=== PATIENT | female | born 1995 | race Caucasian/White ===

== ENCOUNTER 2017-02-04 16:02 | Emergency (ER) | payer MEDICAID ==
[~2017-02-04 16:02] MED LIST: PRENATAL COMPLE1 TAB
[2017-02-04 17:02] LABS: BASOPHILS 0.3 % (0-2); EOSINOPHILS 0.5 % (0-7); HEMATOCRIT 35.6 % (36.0-48.0); HEMOGLOBIN 12.2 g/dL (12-16); IMMATURE GRANULOCYTES 0.1 % (0-5); LYMPHOCYTES 12.9 % (15-50); MCH 29.1 pg (26.0-34.0); MCHC 34.3 g/dL (31.0-37.0); MEAN PLATELET VOLUME 11.6 fL (7.4-10.4); MONOCYTES 10.6 % (2-11); NEUTROPHILS 75.6 % (40-80); RBC 4.19 10x6/uL (4.00-5.40); RDW 12.9 % (11.5-14.5)
[2017-02-04 17:05] LABS: PLATELET COUNT 150 10x3/uL (130-400)
[2017-02-04 17:42] LABS: ALBUMIN 3.6 g/dL (3.4-5.0); ALKALINE PHOSPHATASE 69 U/L (46-116); ALT (SGPT) 14 U/L (10-68); BILIRUBIN - TOTAL 0.46 mg/dL (0.2-1.3); CALC OSMOLALITY 272 mosm/kg (275-300); CARBON DIOXIDE 24.5 mmol/L (21.0-32.0); CHLORIDE - SERUM 101 mmol/L (98-107); CREATININE - SERUM 0.7 mg/dL (0.6-1.3); GLUCOSE 93 mg/dL (74-106); POTASSIUM - SERUM 3.5 mmol/L (3.5-5.1); PROTEIN - SERUM 7.8 g/dL (6.4-8.2); SODIUM 137 mmol/L (136-145); UREA NITROGEN 11 mg/dL (7-18); eGFR NON AFRICAN AMERICAN > 90 mL/min (90-120)
[2017-02-04 17:46] LABS: HCG SERUM POSITIVE (NEGATIVE)
[2017-02-04 20:46] LABS: APPEARANCE HAZY (CLEAR); COLOR YELLOW (YELLOW)
[2017-02-04 20:49] LABS: BILIRUBIN NEGATIVE (NEGATIVE); GLUCOSE NEGATIVE (NEGATIVE); KETONE MODERATE mg/dL (NEGATIVE); NITRITE NEGATIVE (NEGATIVE); PROTEIN NEGATIVE (NEGATIVE); UROBILINOGEN NORMAL (NORMAL)
[2017-02-04 20:50] LABS: BACTERIA MODERATE /hpf (NONE SEEN); MUCUS <1+ /lpf (NONE SEEN); RED CELLS - URINE 0-5 /hpf (0-5); WHITE CELLS - URINE 0-5 /hpf (0-5)
== END 2017-02-04 22:00 | disposition home or self-care (01) ==
LOC: D.ER 16:02
PROVIDERS: Emergency Medicine
DX: J02.9 Acute pharyngitis, unspecified (principal); O02.81 Inappropriate change in quantitative human chorionic gonadotropin (hCG) in early pregnancy; F17.200 Nicotine dependence, unspecified, uncomplicated

== ENCOUNTER 2017-07-27 13:41 | Emergency (ER) | payer SELFPAY | END 2017-07-27 13:51 | disposition left against medical advice (07) | LOC: D.ER 13:41 | DX: Z02.9 Encounter for administrative examinations, unspecified (principal) ==

== ENCOUNTER → 2017-07-27 14:10 | Outpatient (CLI) | payer SELFPAY | END | disposition home or self-care (01) | LOC: D.LDO 14:10 | DX: O26.899 Other specified pregnancy related conditions, unspecified trimester (principal); Z3A.00 Weeks of gestation of pregnancy not specified; R42 Dizziness and giddiness; R06.02 Shortness of breath; R53.83 Other fatigue ==

== ENCOUNTER → 2017-08-22 15:03 | Outpatient (CLI) | payer SELFPAY | END | disposition home or self-care (01) | LOC: D.LDO 15:03 | DX: O36.8130 Decreased fetal movements, third trimester, not applicable or unspecified (principal); Z3A.32 32 weeks gestation of pregnancy; R10.9 Unspecified abdominal pain ==

== ENCOUNTER → 2017-09-21 15:52 | Outpatient (CLI) | payer MEDICAID ==
[2017-09-21 16:13] LABS: APPEARANCE CLEAR (CLEAR); BILIRUBIN NEGATIVE (NEGATIVE); COLOR YELLOW (YELLOW); GLUCOSE NEGATIVE (NEGATIVE); KETONE NEGATIVE (NEGATIVE); NITRITE NEGATIVE (NEGATIVE); PROTEIN NEGATIVE (NEGATIVE); UROBILINOGEN NORMAL (NORMAL)
[2017-09-21 17:55] LABS: BASOPHILS 0.1 % (0-2); EOSINOPHILS 0.4 % (0-7); HEMATOCRIT 25.9 % (36.0-48.0); HEMOGLOBIN 8.2 g/dL (12-16); IMMATURE GRANULOCYTES 0.6 % (0-5); LYMPHOCYTES 16.6 % (15-50); MCH 24.8 pg (26.0-34.0); MCHC 31.7 g/dL (31.0-37.0); MCV 78.2 fL (80.0-100.0); MEAN PLATELET VOLUME 10.9 fL (7.4-10.4); MONOCYTES 8.2 % (2-11); NEUTROPHILS 74.1 % (40-80); RBC 3.31 10x6/uL (4.00-5.40); RDW 14.7 % (11.5-14.5); WBC 8.2 10x3/uL (4.8-10.8)
[2017-09-21 18:07] LABS: PLATELET COUNT 203 10x3/uL (130-400)
[2017-09-21 18:08] LABS: ALBUMIN 2.5 g/dL (3.4-5.0); ALKALINE PHOSPHATASE 106 U/L (46-116); ALT (SGPT) 10 U/L (10-68); BILIRUBIN - TOTAL 0.19 mg/dL (0.2-1.3); CALC OSMOLALITY 274 mosm/kg (275-300); CALCIUM 8.7 mg/dL (8.5-10.1); CARBON DIOXIDE 25.1 mmol/L (21.0-32.0); CHLORIDE - SERUM 105 mmol/L (98-107); CREATININE - SERUM 0.6 mg/dL (0.6-1.3); GLUCOSE 79 mg/dL (74-106); SODIUM 139 mmol/L (136-145); UREA NITROGEN 8 mg/dL (7-18); eGFR NON AFRICAN AMERICAN > 90 mL/min (90-120)
[2017-09-21 19:56] LABS: UDS - AMPHET NEGATIVE QUAL (NEGATIVE); UDS - BARB NEGATIVE QUAL (NEGATIVE); UDS - BENZO NEGATIVE QUAL (NEGATIVE); UDS - COCAINE NEGATIVE QUAL (NEGATIVE); UDS - OPIATE NEGATIVE QUAL (NEGATIVE); UDS - PCP NEGATIVE QUAL (NEGATIVE); UDS - THC NEGATIVE QUAL (NEGATIVE)
== END | disposition home or self-care (01) ==
LOC: D.LDO 15:52
PROVIDERS: Obstetrics & Gynecology
DX: O26.899 Other specified pregnancy related conditions, unspecified trimester (principal); Z3A.00 Weeks of gestation of pregnancy not specified; R20.2 Paresthesia of skin

== ENCOUNTER 2017-09-21 23:24 | Outpatient (CLI) | payer MEDICAID | END 2017-09-21 23:43 | disposition home or self-care (01) | LOC: D.LDO 23:24 → D.LD 23:25 → D.LDO 23:43 | DX: O26.899 Other specified pregnancy related conditions, unspecified trimester (principal); Z3A.00 Weeks of gestation of pregnancy not specified; R20.2 Paresthesia of skin ==

== ENCOUNTER → 2017-09-26 12:18 | Outpatient (CLI) | payer MEDICAID ==
[~2017-09-26 12:18] MED LIST changes: +HYDROCODON-ACE1 EAC7 PO; +IBUPROFEN600 MG PO; +iron
[2017-10-07 08:02] VITALS: BMI 26.2
== END | disposition home or self-care (01) ==
LOC: D.LDO 12:18
DX: O36.8130 Decreased fetal movements, third trimester, not applicable or unspecified (principal); Z3A.37 37 weeks gestation of pregnancy

== ENCOUNTER → 2017-10-03 18:01 | Outpatient (CLI) | payer MEDICAID ==
[2017-10-03 18:49] LABS: UDS - AMPHET NEGATIVE QUAL (NEGATIVE); UDS - BARB NEGATIVE QUAL (NEGATIVE); UDS - BENZO NEGATIVE QUAL (NEGATIVE); UDS - COCAINE NEGATIVE QUAL (NEGATIVE); UDS - OPIATE NEGATIVE QUAL (NEGATIVE); UDS - PCP NEGATIVE QUAL (NEGATIVE); UDS - THC NEGATIVE QUAL (NEGATIVE)
[2017-10-03 19:12] LABS: APPEARANCE CLOUDY (CLEAR); BILIRUBIN NEGATIVE (NEGATIVE); COLOR YELLOW (YELLOW); GLUCOSE 50 mg/dL (NEGATIVE); KETONE NEGATIVE (NEGATIVE); NITRITE NEGATIVE (NEGATIVE); PROTEIN NEGATIVE (NEGATIVE); UROBILINOGEN NORMAL (NORMAL)
[2017-10-07 08:02] VITALS: BMI 26.2
== END | disposition home or self-care (01) ==
LOC: D.LDO 18:01
PROVIDERS: Obstetrics & Gynecology
DX: O26.893 Other specified pregnancy related conditions, third trimester (principal); Z3A.38 38 weeks gestation of pregnancy

== ENCOUNTER 2017-10-07 07:18 | Inpatient (IN) | payer MEDICAID ==
[~2017-10-07] VITALS: Ht 172.7 cm; Wt 78.0 kg
--- NOTE | ~2017-10-07 | DS ---
PATIENT:PRASHANT PEMBERTON :89 MEDICAL RECORD: [id number] DISCHARGE SUMMARY ADMISSION DATE: 10/07/17 DISCHARGE DATE: 10/08/17 HOSPITAL COURSE: The patient was admitted on 10/07/2017. A 21-year-old G2, P1 at 38 weeks and 6 days, admitted in active labor. The patient was noted to be O positive, group B strep negative, and rubella immune. The patient was at 4 cm in active labor with category 1 tracing. PAST MEDICAL HISTORY: Significant for; 1. Anemia status post blood transfusion the prior week. 2. Positive THC. 3. Carpal tunnel syndrome. PAST SURGICAL HISTORY: The patient reported no surgical history. ALLERGIES: SULFA AND CODEINE. MEDICATIONS: Included vitamins. FAMILY HISTORY: The patient reported a family history noncontributory. SOCIAL HISTORY: Significant for a someday tobacco and marijuana smoker. PHYSICAL EXAMINATION: GENERAL: On initial assessment, the patient was noted to be anxious and in obvious pain from labor. LUNGS: Clear to auscultation. CARDIOVASCULAR: Regular rate and rhythm. PELVIC: Uterus was appropriately sized and nontender. EXTREMITIES: Lower extremities were free of Homans sign. wellbeing was reassuring with a category 1 tracing. Plan at that time, admit for expectant management of labor with AROM when appropriate, category 1 tracing. Admit hemoglobin was found to be 10.4, platelet count of 181. Delivery note is as on the chart. AROM was performed at 9 cm with clear fluid and continued category 1 tracing. The patient then quickly progressed to the second stage when an SCD was performed. As mentioned, delivery note is as on the chart. The patient did well overnight on day #0, tolerating general diet, p.o. pain meds, voiding freely and ambulating well. On the morning of day #1, the patient continued to do well. Vital signs are stable. The patient was afebrile. Hemoglobin was stable. Uterus was infraumbilical and nontender, minimal lochia was noted at that time. The patient was discharged home on day #1 with instructions to follow up in 4 weeks. TRANSINT:[id number] Voice Confirmation ID: [id number] DOCUMENT ID: [id number] DISCHARGE SUMMARY REPORT [id number] PRASHANT PEMBERTON, LASHELL Jimenez MD at 1304 CC: [id number] DICTATION DATE: 11/22/17 0704 SENIOR COGNOS DEVELOPER: 11/22/17 0924 DIS IN 10/08/17 [place] [id number] [place] [address]
[~2017-10-07 07:18] MED LIST changes: -HYDROCODON-ACE1 EAC7 PO; -IBUPROFEN600 MG PO; -iron
[2017-10-07] MEDS ORDERED: iron (08:00)
[2017-10-07 08:02] VITALS: BP 125/67; Ht 172.7 cm; Wt 78.0 kg
[2017-10-07 08:49] LABS: HEMATOCRIT 31.6 % (36.0-48.0); HEMOGLOBIN 10.4 g/dL (12-16); MCH 25.8 pg (26.0-34.0); MCHC 32.9 g/dL (31.0-37.0); MCV 78.4 fL (80.0-100.0); MEAN PLATELET VOLUME 11.8 fL (7.4-10.4); RBC 4.03 10x6/uL (4.00-5.40); WBC 13.9 10x3/uL (4.8-10.8)
[2017-10-07 08:53] LABS: APPEARANCE HAZY (CLEAR); BILIRUBIN NEGATIVE (NEGATIVE); COLOR YELLOW (YELLOW); GLUCOSE NEGATIVE (NEGATIVE); KETONE NEGATIVE (NEGATIVE); NITRITE NEGATIVE (NEGATIVE); PROTEIN NEGATIVE (NEGATIVE); SPECIFIC GRAVITY 1.015 (1.005-1.020); UROBILINOGEN NORMAL (NORMAL)
[2017-10-07 08:56] LABS: BACTERIA MODERATE /hpf (NONE SEEN); MUCUS >1+ /lpf (NONE SEEN); RED CELLS - URINE 0-5 /hpf (0-5); SPERMATOZOA PRESENT /hpf (NONE SEEN); WHITE CELLS - URINE 25-50 /hpf (0-5)
[2017-10-07 08:57] LABS: CALCIUM OXALATE CRYSTALS 0-5 /hpf (NONE SEEN)
[2017-10-07 16:30] VITALS: BP 118/54
[2017-10-07 21:37] VITALS: BP 109/59
[2017-10-08 06:41] LABS: BASOPHILS 0.2 % (0-2); EOSINOPHILS 0.7 % (0-7); HEMATOCRIT 34.2 % (36.0-48.0); HEMOGLOBIN 10.8 g/dL (12-16); IMMATURE GRANULOCYTES 0.4 % (0-5); LYMPHOCYTES 23.2 % (15-50); MCH 25.4 pg (26.0-34.0); MCHC 31.6 g/dL (31.0-37.0); MONOCYTES 7.4 % (2-11); NEUTROPHILS 68.1 % (40-80); PLATELET COUNT 185 10x3/uL (130-400); RBC 4.25 10x6/uL (4.00-5.40); RDW 17.4 % (11.5-14.5); WBC 11.8 10x3/uL (4.8-10.8)
[2017-10-08 06:47] LABS: MCV 80.5 fL (80.0-100.0)
[2017-10-08 07:30] LABS: RAPID PLASMA REAGIN Non Reactive (Non Reactive)
[2017-10-08 10:16] VITALS: BP 106/57
[2017-10-08] MEDS ORDERED: IBUPROFEN600 MG PO (13:59)
[2017-10-08] MEDS ORDERED: HYDROCODON-ACE1 EAC7 PO (14:00)
== END 2017-10-08 16:25 | disposition home or self-care (01) | DRG 775 ==
LOC: D.LDO 07:18 → D.LD 08:42
PROVIDERS: Obstetrics & Gynecology
PROC: 10E0XZZ Delivery of Products of Conception, External Approach (ICD-10-PCS; principal; 2017-10-07)
PROC: 10907ZC Drainage of Amniotic Fluid, Therapeutic from Products of Conception, Via Natural or Artificial Opening (ICD-10-PCS; 2017-10-07)
DX: O99.334 Smoking (tobacco) complicating childbirth (principal); Z3A.38 38 weeks gestation of pregnancy; Z37.0 Single live birth; O99.324 Drug use complicating childbirth; F15.90 Other stimulant use, unspecified, uncomplicated; O99.02 Anemia complicating childbirth

== ENCOUNTER 2018-12-13 17:34 | Emergency (ER) | payer OTHER ==
[~2018-12-13] VITALS: Ht 172.7 cm; Wt 61.4 kg
[~2018-12-13 17:34] MED LIST changes: +HYDROCODON-ACE1 EAC7 PO; +IBUPROFEN600 MG PO; +iron
[2018-12-13 17:48] VITALS: Ht 172.7 cm; Wt 61.4 kg
[2018-12-13 18:05] LABS: APPEARANCE CLEAR (CLEAR); BILIRUBIN NEGATIVE (NEGATIVE); COLOR YELLOW (YELLOW); GLUCOSE NEGATIVE (NEGATIVE); KETONE NEGATIVE (NEGATIVE); NITRITE NEGATIVE (NEGATIVE); PROTEIN TRACE mg/dL (NEGATIVE); UROBILINOGEN NORMAL (NORMAL)
[2018-12-13 18:06] LABS: RED CELLS - URINE 0-5 /hpf (0-5); WHITE CELLS - URINE 0-5 /hpf (0-5)
[2018-12-13 18:07] LABS: BACTERIA FEW /hpf (NONE SEEN); MUCUS >1+ /lpf (NONE SEEN)
[2018-12-13 18:08] LABS: HCG URINE NEGATIVE (NEGATIVE)
[2018-12-13 18:36] LABS: BASOPHILS 0.1 % (0-2); EOSINOPHILS 0.1 % (0-7); HEMATOCRIT 36.8 % (36.0-48.0); HEMOGLOBIN 13.1 g/dL (12-16); IMMATURE GRANULOCYTES 0.2 % (0-5); LYMPHOCYTES 5.3 % (15-50); MCH 29.4 pg (26.0-34.0); MCHC 35.6 g/dL (31.0-37.0); MCV 82.7 fL (80.0-100.0); MEAN PLATELET VOLUME 10.7 fL (7.4-10.4); MONOCYTES 4.6 % (2-11); NEUTROPHILS 89.7 % (40-80); PLATELET COUNT 188 10x3/uL (130-400); RBC 4.45 10x6/uL (4.00-5.40); RDW 12.8 % (11.5-14.5); WBC 13.1 10x3/uL (4.8-10.8)
[2018-12-13 18:52] LABS: ALBUMIN 3.9 g/dL (3.4-5.0); ALKALINE PHOSPHATASE 71 U/L (46-116); ALT (SGPT) 19 U/L (10-68); AMYLASE - SERUM 70 U/L (25-115); BILIRUBIN - TOTAL 0.67 mg/dL (0.2-1.3); CALC OSMOLALITY 283 mosm/kg (275-300); CALCIUM 8.5 mg/dL (8.5-10.1); CARBON DIOXIDE 26.9 mmol/L (21.0-32.0); CHLORIDE - SERUM 105 mmol/L (98-107); CREATININE - SERUM 0.8 mg/dL (0.6-1.3); GLUCOSE 89 mg/dL (74-106); LIPASE 95 U/L (73-393); POTASSIUM - SERUM 3.7 mmol/L (3.5-5.1); PROTEIN - SERUM 7.1 g/dL (6.4-8.2); SODIUM 142 mmol/L (136-145); UREA NITROGEN 18 mg/dL (7-18); eGFR NON AFRICAN AMERICAN > 90 mL/min (90-120)
[2018-12-13] MEDS ORDERED: PHENERGAN25 M1 PO (20:19)
[2018-12-13] MEDS ORDERED: LOMOTIL 2.5-0.1 EAC1 PO (20:19)
[2018-12-13 20:46] VITALS: BP 130/61
== END 2018-12-13 20:46 | disposition home or self-care (01) ==
LOC: D.ER 17:34
PROVIDERS: Family Medicine
DX: A08.4 Viral intestinal infection, unspecified (principal)

== ENCOUNTER 2019-10-01 17:08 | Outpatient (CLI) | payer OTHER ==
[2018-12-13 17:48] VITALS: BMI 20.5
[~2019-10-01 17:08] MED LIST changes: +LOMOTIL 2.5-0.1 EAC1 PO; +PHENERGAN25 M1 PO
[2019-10-01 17:53] LABS: BASOPHILS 0.1 % (0-2); EOSINOPHILS 0.3 % (0-7); HEMATOCRIT 30.9 % (36.0-48.0); HEMOGLOBIN 10.2 g/dL (12-16); IMMATURE GRANULOCYTES 0.3 % (0-5); LYMPHOCYTES 14.1 % (15-50); MCH 29.3 pg (26.0-34.0); MCV 88.8 fL (80.0-100.0); MEAN PLATELET VOLUME 10.9 fL (7.4-10.4); MONOCYTES 6.1 % (2-11); NEUTROPHILS 79.1 % (40-80); PLATELET COUNT 201 10x3/uL (130-400); RBC 3.48 10x6/uL (4.00-5.40); RDW 13.1 % (11.5-14.5); WBC 11.4 10x3/uL (4.8-10.8)
[2019-10-01 18:24] LABS: ALBUMIN 2.9 g/dL (3.4-5.0); ALKALINE PHOSPHATASE 67 U/L (30-120); ALT (SGPT) 11 U/L (10-68); BILIRUBIN - TOTAL 0.19 mg/dL (0.2-1.3); CALC OSMOLALITY 272 mosm/kg (275-300); CALCIUM 8.4 mg/dL (8.5-10.1); CARBON DIOXIDE 23.7 mmol/L (21.0-32.0); CHLORIDE - SERUM 103 mmol/L (98-107); CREATININE - SERUM 0.7 mg/dL (0.6-1.3); GLUCOSE 83 mg/dL (74-106); POTASSIUM - SERUM 3.8 mmol/L (3.5-5.1); PROTEIN - SERUM 6.2 g/dL (6.4-8.2); SODIUM 137 mmol/L (136-145); UREA NITROGEN 12 mg/dL (7-18); eGFR NON AFRICAN AMERICAN > 90 mL/min (90-120)
== END 2019-10-01 18:30 | disposition home or self-care (01) ==
LOC: D.LDO 17:08
PROVIDERS: ATTEND Obstetrics & Gynecology
DX: O26.899 Other specified pregnancy related conditions, unspecified trimester (principal); Z3A.00 Weeks of gestation of pregnancy not specified; R00.0 Tachycardia, unspecified; R00.2 Palpitations

== ENCOUNTER → 2019-11-15 10:27 | Outpatient (CLI) | payer OTHER ==
[2018-12-13 17:48] VITALS: BMI 20.5
--- NOTE | ~2019-11-15 | EC ---
PATIENT:PRASHANT PEMBERTON DATE OF SERVICE: 11/15/19 SEX: F MEDICAL RECORD: [id number] DATE OF : [birth year] [facility] AGE OF PATIENT: 23 ADMISSION DATE: 11/15/19 REFERRING PHYSICIAN: INTERPRETING PHYSICIAN: NELL CASTELAN MD ECHOCARDIOGRAM REPORT ECHO CHARGES 4 ECHO COMPLETE Date: 11/15/19 CLINICAL DIAGNOSIS: HEART MURMUR ECHOCARDIOGRAPHIC MEASUREMENTS (adult normal given) AC root (d.<3.7cm) 3.2 cm LV Septum d (<1.2 cm> 1.2 cm Valve Excursion 1.7 cm LV Septum (systole) 1.5 cm Left Atria (s.<4.0cm> 3.9 cm LVPW d(<1.2cm) 1.3 cm RV (d.<2.3cm) 3.8 cm LVPW (sytole) 1.8 cm LV diastole(<5.6CM) 4.7 cm MV E-F(>70mm/sec) cm LV systole 2.9 cm LVOT Diameter 2.4 cm MV exc.(>10mm) 1.7 cm Est.ejection fraction (50-75%) % DOPPLER: LVIT cm/sec A 58.0 cm/sec E 74.0 cm/sec LA cm/sec RVSP 31 mmHg LVOT 109 cm/sec AOP1/2T m/s Asc. Ao 158 cm/sec RVOT 130 cm/sec RA cm/sec PA 146 cm/sec AV Gradient Peak 9.93 mmHg AV Mean 4.40 mmHg AV Area 3.9 cm MV Gradient Peak 3.34 mmHg MV Mean 1.84 mmHg MV Area cm COMMENTS: Video Software Engineer: 2 RORY RODRIGUEZ Custodial Services Manager: 3 Dr. Batres TAPE# PACS Pericardial Effusion N DATE OF SERVICE: Adequate 2D, color flow imaging, spectral Doppler, and M-Mode. No LVH. LV internal dimensions are normal. Wall motion is normal. EF is greater than or equal to 55%. Aortic valve is tricuspid. No evidence of stenosis by Doppler interrogation. Left atrium is normal. Mitral valve shows no prolapse. Physiologic MR. Right-sided chambers are grossly normal. Physiologic TR. ECHOCARDIOGRAM REPORT [id number] PRASHANT PEMBERTON TRANSINT:[id number] Voice Confirmation ID: [id number] DOCUMENT ID: [id number] NELL CASTELAN MD CC: [id number] DICTATION DATE: 11/16/19 1241 REHABILITATION THERAPIST: 11/16/19 1324 DEP CLI 11/15/19 [place] [id number] [place] [id number]
== END | disposition home or self-care (01) ==
LOC: D.HCCECHO 10:27
PROVIDERS: ATTEND Internal Medicine Interventional Cardiology
DX: R01.1 Cardiac murmur, unspecified (principal)

== ENCOUNTER → 2019-12-16 22:03 | Outpatient (CLI) | payer OTHER ==
[2018-12-13 17:48] VITALS: BMI 20.5
[2019-12-16 22:23] LABS: BILIRUBIN NEGATIVE (NEGATIVE); GLUCOSE 100 mg/dL (NEGATIVE); KETONE NEGATIVE (NEGATIVE); NITRITE NEGATIVE (NEGATIVE); UROBILINOGEN NORMAL (NORMAL)
[2019-12-16 22:42] LABS: UDS - AMPHET NEGATIVE QUAL (NEGATIVE); UDS - BARB NEGATIVE QUAL (NEGATIVE); UDS - BENZO NEGATIVE QUAL (NEGATIVE); UDS - COCAINE NEGATIVE QUAL (NEGATIVE); UDS - OPIATE NEGATIVE QUAL (NEGATIVE); UDS - PCP NEGATIVE QUAL (NEGATIVE); UDS - THC NEGATIVE QUAL (NEGATIVE)
== END | disposition home or self-care (01) ==
LOC: D.LDO 22:03
PROVIDERS: ATTEND Obstetrics & Gynecology
DX: O26.893 Other specified pregnancy related conditions, third trimester (principal); Z3A.34 34 weeks gestation of pregnancy; R03.0 Elevated blood-pressure reading, without diagnosis of hypertension

== ENCOUNTER 2020-01-04 15:02 | Outpatient (CLI) | payer OTHER ==
[2018-12-13 17:48] VITALS: BMI 20.5
[2020-01-04] MEDS ORDERED: AMBIEN5 MG PO (15:19)
[2020-01-04] MEDS ORDERED: CYCLOBENZAPRINE10 MG PO (15:21)
--- NOTE | 2020-01-04 15:59 | NUR ---
DR. MUÑOZ NOTIFIED AND REVIEWED PT'S BEHAVIOR AND ASSESSMENT RESULTS. PT IS A LOW RISK PER DR. MUÑOZ. DR. MUÑOZ STATED TO GIVE RESOURCES TO PT AT TIME OF DISCHARGE. NO FURTHER ORDERS AT THIS TIME. RESOURCES REVIEWED WITH PT AND SHE VERBALIZED UNDERSTANDING.
== END 2020-01-04 16:45 | disposition home or self-care (01) ==
LOC: D.LDO 15:02
PROVIDERS: ATTEND Obstetrics & Gynecology
DX: O36.8190 Decreased fetal movements, unspecified trimester, not applicable or unspecified (principal)

== ENCOUNTER 2020-01-06 12:41 | Outpatient (CLI) | payer OTHER ==
[2018-12-13 17:48] VITALS: BMI 20.5
[~2020-01-06 12:41] MED LIST changes: +AMBIEN5 MG PO; +CYCLOBENZAPRINE10 MG PO
[2020-01-06 13:14] LABS: BILIRUBIN NEGATIVE (NEGATIVE); KETONE NEGATIVE (NEGATIVE); NITRITE NEGATIVE (NEGATIVE); UROBILINOGEN NORMAL (NORMAL)
[2020-01-06 13:15] LABS: BACTERIA FEW /HPF (NONE SEEN); EPITHELIAL CELLS 0-5 /hpf (0-5); WHITE CELLS - URINE OCC /hpf (0-5)
[2020-01-06 13:18] LABS: UDS - AMPHET NEGATIVE QUAL (NEGATIVE); UDS - BARB NEGATIVE QUAL (NEGATIVE); UDS - BENZO NEGATIVE QUAL (NEGATIVE); UDS - COCAINE NEGATIVE QUAL (NEGATIVE); UDS - OPIATE NEGATIVE QUAL (NEGATIVE); UDS - PCP NEGATIVE QUAL (NEGATIVE); UDS - THC NEGATIVE QUAL (NEGATIVE)
== END 2020-01-06 14:45 | disposition home or self-care (01) ==
LOC: D.LDO 12:41
PROVIDERS: ATTEND Student in an Organized Health Care Education/Training Program
DX: O47.9 False labor, unspecified (principal)

== ENCOUNTER 2020-01-14 22:50 | Outpatient (CLI) | payer OTHER ==
[2018-12-13 17:48] VITALS: BMI 20.5
[2020-01-14 23:12] LABS: BILIRUBIN NEGATIVE (NEGATIVE); KETONE SMALL mg/dL (NEGATIVE); NITRITE NEGATIVE (NEGATIVE); UROBILINOGEN NORMAL mg/dL (< 2)
== END 2020-01-15 00:05 ==
LOC: D.LDO 22:50
PROVIDERS: ATTEND Obstetrics & Gynecology
DX: O35.9XX0 Maternal care for (suspected) fetal abnormality and damage, unspecified, not applicable or unspecified (principal)

== ENCOUNTER 2020-01-17 11:30 | Inpatient (IN) | payer OTHER ==
[~2020-01-17] VITALS: Ht 172.7 cm; Wt 77.3 kg
[2020-01-17 13:00] LABS: HEMATOCRIT 29.1 % (36.0-48.0); HEMOGLOBIN 8.7 g/dL (12-16); MCHC 29.9 g/dL (31.0-37.0); MCV 73.7 fL (80.0-100.0); MEAN PLATELET VOLUME 11.2 fL (7.4-10.4); RBC 3.95 10x6/uL (4.00-5.40); WBC 14.4 10x3/uL (4.8-10.8)
[2020-01-17 13:16] LABS: UDS - AMPHET NEGATIVE QUAL (NEGATIVE); UDS - BARB NEGATIVE QUAL (NEGATIVE); UDS - BENZO NEGATIVE QUAL (NEGATIVE); UDS - COCAINE NEGATIVE QUAL (NEGATIVE); UDS - OPIATE NEGATIVE QUAL (NEGATIVE); UDS - PCP NEGATIVE QUAL (NEGATIVE); UDS - THC NEGATIVE QUAL (NEGATIVE)
--- NOTE | 2020-01-17 17:50 | NUR ---
pt ring call light- co of iv saline lock hurting and requesting that it be removed. no redness or swelling noted around site. iv discontinued -cath tip intact- pressure held and bandaide applied. denies other needs. p and about in room.
[2020-01-17 19:56] VITALS: BP 108/55; Ht 172.7 cm; Wt 77.3 kg
--- NOTE | 2020-01-17 19:56 | NUR ---
PT REC'D IN BED AT THIS TIME. COMPLAINS OF PAIN 07/05. FUNDUS FIRM AND MIDLINE. SCANT LOCHIA NOTED. U/2. NO DISTRESS NOTED. Claudia SOSA RN
--- NOTE | 2020-01-17 20:12 | NUR ---
PT MEDICATED WITH MOTRIN. WILL MONITOR. Claudia SOSA RN
--- NOTE | 2020-01-17 21:10 | NUR ---
PT STATES THAT SHE HAD NO PAIN AT THIS TIME. WILL CONTINUE TO MONITOR. Claudia SOSA RN
--- NOTE | 2020-01-17 22:40 | NUR ---
PT REC'D IN BED AT THIS TIME. NO NEEDS VOICED. Claudia SOSA RN
--- NOTE | 2020-01-18 00:10 | NUR ---
PT WITH INFANT. DENIES PAIN.. REQUESTING ICE. NO DISTRESS NOTED. Claudia SOSA RN
--- NOTE | 2020-01-18 02:20 | NUR ---
PT REC'D UP TIN ROOM NO DISTRESS NOTED. LINEN CHANGED AT THIS TIME. Claudia SOSA RN
--- NOTE | 2020-01-18 04:40 | NUR ---
PT REC'D IN BED TAKING CARE OF AT THIS TIME. PT DENIES NEEDS OR PAIN AT THIS TIME. NO DISTRESS NOTED. Claudia SOSA RN
[2020-01-18 06:12] LABS: BASOPHILS 0.2 % (0-2); EOSINOPHILS 1.1 % (0-7); HEMATOCRIT 27.7 % (36.0-48.0); HEMOGLOBIN 8.1 g/dL (12-16); IMMATURE GRANULOCYTES 0.7 % (0-5); LYMPHOCYTES 27.3 % (15-50); MCH 21.7 pg (26.0-34.0); MCHC 29.2 g/dL (31.0-37.0); MCV 74.3 fL (80.0-100.0); MEAN PLATELET VOLUME 10.3 fL (7.4-10.4); MONOCYTES 6.7 % (2-11); PLATELET COUNT 290 10x3/uL (130-400); RBC 3.73 10x6/uL (4.00-5.40); RDW 15.9 % (11.5-14.5); WBC 11.9 10x3/uL (4.8-10.8)
--- NOTE | 2020-01-18 06:30 | NUR ---
PT MEDICATED WITH NORCO 1 TAB FOR PAIN OF 4/10. WILL MONITOR. Claudia SOSA RN
[2020-01-18 07:15] LABS: RAPID PLASMA REAGIN Non Reactive (Non Reactive)
[2020-01-18 08:25] VITALS: BP 108/54
--- NOTE | 2020-01-18 08:25 | NUR ---
THIS RN AT BEDSIDE DURING SHIFT ASSESSMENT AND CONCURS WITH SHIFT ASSESSMENT CHARTED BY Kishore MCCORD RN.
--- NOTE | 2020-01-18 08:25 | NUR ---
SHIFT ASSESSMENT COMPLETED PER FLOWSHEET. VSS. FUNDUS FIRM MIDLINE U1. SMALL AMOUNT RUBRA LOCHIA NOTED. NO CLOTS. PATIENT REPORTS "EARLIER THIS MORNING HAD ONE CLOT." DENIES PAIN AT THIS TIME, HOWEVER REPORTS INTERMITTENT CRAMPING. POC DISCUSSED WITH PATIENT AND SIGNIFICANT OTHER. BOTH VERBALIZE UNDERSTANDING AND DENIE QUESTIONS. SIGNIFICANT OTHER SUPPORTIVE TO PATIENT AND 'S NEEDS. BED IN LOW POSITION. CALL LIGHT AND PHONE WITHIN REACH. SRUP X2. RESTING IN OPEN CRIB.
--- NOTE | 2020-01-18 09:42 | NUR ---
C/O INTERMITTENT ABDOMEN CRAMPING 08/05. MOTRIN GIVEN PER ORDER AND PATIENT REQUEST. VIT C AND IRON PROVIDED PER ORDER. EDUCATED ON MEDS. VERBALIZES UNDERSTANDING. BONDING WITH INFANT IN ARMS. DENIES NEEDS. BED IN LOW POSITION. SRUP X2.
--- NOTE | 2020-01-18 10:24 | NUR ---
PAIN REASSESSMENT COMPLETED. RESTING QUIETLY WITH EYES CLOSED. RESPIRATIONS REGULAR AND UNLABORED, NO S/S OF DISTRESS NOTED. INFANT RESTING QUIETLY IN OPEN CRIB AT BEDSIDE. SIGNIFICANT OTHER WATCHING TV, DENIES QUESTIONS AND NEEDS. BED IN LOW POSITION WITH SRUP X2. CALL LIGHT AND PHONE WITHIN REACH. WILL CONTINUE TO MONITOR.
--- NOTE | 2020-01-18 11:54 | NUR ---
ROUNDS MADE. SITTING UP PREPARING TO EAT LUNCH TRAY. DENIES PAIN AND NEEDS AT THIS TIME. IN FOB'S ARMS. WILL CONTINUE TO MONITOR.
--- NOTE | 2020-01-18 14:27 | NUR ---
C/O CRAMPING 09/04. NORCO PROVIDED PER PATIENT REQUEST AND ORDER. BONDING WITH INFANT. SIGNIFICANT OTHER SUPPORTIVE AND ATTENTIVE. DENIES ADDITIONAL NEEDS.
[2020-01-18] MEDS ORDERED: MOTRIN600 MG PEG (15:52)
[2020-01-18] MEDS ORDERED: EZFE 200200 MG PO (15:53)
--- NOTE | 2020-01-18 17:11 | NUR ---
PATIENT EDUCATION AND INSTRUCTIONS GIVEN TO PATIENT. PATIENT VERBALIZED UNDERSTANDING AND AGREEMENT. PATIENT TAKEN TO PRIVATE CAR VIA WHELLCHAIR DRIVEN BY .
--- NOTE | 2020-01-19 18:49 | MORECARE ---
CASE MANAGEMENT DISCHARGE SUMMARY PATIENT: PRASHANT PEMBERTON UNIT: [id number] ADM DATE: 01/17/20 AGE: 24 : [birth year] SEX: F ROOM/BED: D.1257 AUTHOR: MICAELA DIOR PHYSICIAN: REFERRING PHYSICIAN: HANNAH BRYAN DO DATE OF SERVICE: 01/19/20 Discharge Plan Patient Name: PRASHANT PEMBERTON Facility: [facility]:[place] : 1995 Planned Disposition: Home Anticipated Discharge Date: 01/18/20 Discharge Date: 01/18/2020 Expected LOS: 1 Initial Reviewer: [email or web address] Initial Review Date: 01/17/2020 Generated: 01/19/20 7:49 pm Patient Name: PRASHANT PEMBERTON Page [id number] at 1849 All edits/amendments must be made on the electronic document DICTATION DATE: 01/19/201848 WELLNESS SPA MANAGER: CLAUDY 01/19/201848 RPT#: [id number] DC DATE:01/18/20 STATUS: DIS IN [facility] [address] [place] [address] END OF REPORT
== END 2020-01-18 17:12 | disposition home or self-care (01) | DRG 807 ==
LOC: D.LD 11:30
PROVIDERS: ADMIT Student in an Organized Health Care Education/Training Program; ATTEND Student in an Organized Health Care Education/Training Program
PROC: 10E0XZZ Delivery of Products of Conception, External Approach (ICD-10-PCS; principal; 2020-01-17)
DX: O62.3 Precipitate labor (principal); Z37.0 Single live birth; Z3A.38 38 weeks gestation of pregnancy